=== PATIENT | female | born 1960 | race Caucasian/White ===

== ENCOUNTER 2019-01-16 09:25 | Observation (INO) | payer MEDICARE, OTHER ==
[2019-01-09 10:35] VITALS: BMI 33.5
--- NOTE | 2019-01-11 15:44 | RADRPT ---
Vent Rate: 85 bpm RR Interval: 708 msec OR Interval: 152 msec QRS Duration: 86 msec QT Interval: 381 msec QTC Interval: 453 msec P-R-T [place]: 60 - 23 - 51 degrees Sinus rhythm...normal P axis, V-rate 50- 99 Electronically Signed By: Gaudencio Stearns
[~2019-01-16] VITALS: Ht 144.8 cm; Wt 74.8 kg
[2019-01-16] VITALS (27 sets, daily range): BP systolic 97–159; BP diastolic 48–86; PULSE 72–98; RESP 11–18; Ht 144.8 cm; Wt 74.8 kg
[~2019-01-16 09:25] MED LIST: ACETAMINOPHEN 500 MG TAB PO ONE; CEFAZOLIN 2 GM/50 ML (PMX) 50 ML IVPB ONE; DEXL30CA2 PO; ESCI10TA PO; LIPA1CAP PO; MECL25TA PO; METO-429 PO; NAPR-688; RANI300T3; SOD CHLORIDE 0.9% 1,000 ML IV ONE; ZOLP5TAB
[2019-01-16] MEDS ORDERED: ZOLP10TA5 ORAL (10:21)
[2019-01-16] MEDS ORDERED: MECL-77 ORAL (10:21)
[2019-01-16] MEDS ORDERED: DEXL60CA2 ORAL (10:21)
[2019-01-16] MEDS ORDERED: CYCL10TA7 ORAL (10:21)
[2019-01-16] MEDS ORDERED: ESCI20TA38 ORAL (10:21)
[2019-01-16] MEDS ORDERED: PROPOFOL 40 ML ONE (10:52)
[2019-01-16] MEDS ORDERED: LIDOCAINE 2% (SDV) 5 ML INJ ONE (10:52)
[2019-01-16] MEDS ORDERED: MIDAZOLAM 1 MG/ML 2 ML INJ ONE (10:52)
[2019-01-16] MEDS ORDERED: FAMOTIDINE 20 MG INJ ONE (10:53)
[2019-01-16] MEDS ORDERED: FENTAnyl 50 MCG/ML VIAL ONE (10:53)
[2019-01-16] MEDS ORDERED: CEFAZOLIN 1 GM INJ ONE (10:53)
[2019-01-16] MEDS ORDERED: ONDANSETRON 4 MG INJ ONE (10:53)
--- NOTE | 2019-01-16 11:02 | PREAC ---
Date/Time of Note Date/Time of Note DATE: 01/16/19 TIME: 11:00 Anesthesia Eval and Record Evaluation Time Pre-Procedure Interview DATE: 01/16/19 TIME: 11:00 Age 58 Sex female NPO: 8 hrs Preoperative diagnosis hx R breast CA Planned procedure prophylactic L breast mastectomy Past Medical History Past Medical History: Includes Cardio: HTN GI: Obesity Surgery & Anesthesia Issues Hx of PONV (R mastectomy) Meds Anticoagulation: No Beta Axel within 24 hr: Yes Reported Medications Cyclobenzaprine Hcl* (Cyclobenzaprine Hcl*) 10 Mg Tablet, 1 TAB ORAL DAILY 01/16/19 Dexlansoprazole (Dexilant) 60 Mg Cap., 1 CAP ORAL DAILY 01/16/19 Meclizine Hcl* (Meclizine Hcl*) 25 Mg Tablet, 12.5 MG ORAL Q8 PRN for DIZZINESS 01/16/19 Escitalopram Oxalate* (Escitalopram Oxalate*) 20 Mg Tablet, 1 TAB ORAL DAILY 01/16/19 Zolpidem Tartrate* (Zolpidem Tartrate*) 10 Mg Tablet, 1 TAB ORAL QHS PRN for INSOMNIA 01/16/19 Metoprolol Tartrate* (Lopressor*) 50 Mg Tab, 50 MG PO TID, #60 TAB 01/09/19 Ranitidine Hcl* (Zantac*) 300 Mg Tab 06/18/10 Naproxen* (Naproxen*) 500 Mg Tablet 06/18/10 Discontinued Reported Medications Meclizine Hcl* (Motion Sickness Relief*) 25 Mg Tab.chew, 25 MG PO Q8H, TAB.CHEW 01/09/19 Saizcn-Mqdwupmb-Gzstayq* (Austen DURHAM* 3,000) 3,000 L-9,500-15,000 Unit Capsule., 1 CAP PO WITH MEALS, CAP 01/09/19 Dexlansoprazole (Dexilant) 30 Mg Cap., 30 MG PO DAILY, #30 CAP 01/09/19 Escitalopram Oxalate* (Lexapro*) 10 Mg Tablet, 10 MG PO DAILY, #30 TAB 01/09/19 Zolpidem Tartrate* (Ambien*) 5 Mg Tablet 06/18/10 Lansoprazole* (Prevacid*) 30 Mg Capsule. 06/18/10 Current Medications Sodium Chloride 1,000 ml @ 75 mls/hr [id number] ONCE IV ; Start 01/16/19 at 09:00; Stop 01/16/19 at 22:19 Meds reviewed: Yes Allergies Coded Allergies: diphenhydramine (Verified Allergy, Mild, "MAKES ME MOREAWAKE", 01/09/19) Allergies Reviewed: Yes Labs/Studies Labs Reviewed: Reviewed by anesthesiologist test: N/A Studies: ECG (nsr), CXR (normal) Pre-procedure Exam Last vitals Vital Signs Date Temp Pulse Resp B/P (MAP) Pulse Ox O2 O2 Flow FiO2 Time Delivery Rate 01/16/19 97.5 72 16 109/63 99 Room Air 10:54 (78) Airway: Adequate mouth opening, Adequate thyromental dist Mallampati: Mallampati II Teeth: Normal Lung: Normal Heart: Normal ASA Physical Status ASA physical status: 2 Emergency: None Planned Anesthetic General/MAC: LMA Pre-operative Attestations Prior to commencing anesthesia and surgery, the patient was re-evaluated, there was verification of: *The patient's identity *The results of appropriate recent lab work and preoperative vital signs *The above evaluation not changing prior to induction *Anesthetic plan, risk benefits, alternative and complications discussed with patient/family; questions answered; patient/family understands, accepts and wishes to proceed. LILIANA HAN Jan 16, 2019 11:02
[2019-01-16] MEDS ORDERED: METOCLOPRAMIDE 10 MG INJ ONE (11:11)
[2019-01-16] MEDS ORDERED: FENTAnyl 50 MCG/ML VIAL IV PRN ×2 (11:30)
[2019-01-16] MEDS ORDERED: MEPERIDINE 25 MG INJ IV PRN (11:30)
[2019-01-16] MEDS ORDERED: ONDANSETRON 4 MG INJ IV PRN ×2 (11:30→13:30)
[2019-01-16] MEDS ORDERED: LABETALOL HCL 20MG INJ IV PRN (11:30)
[2019-01-16] MEDS ORDERED: morphine 2 MG INJ IV PRN ×2 (11:30)
[2019-01-16] MEDS ORDERED: OXYCODONE/ACETAMINOPHEN (5/325) TAB PO PRN ×2 (11:30)
[2019-01-16] MEDS ORDERED: HYDROmorphONE 1 MG/5 ML IV SYRINGE IV PRN ×3 (11:30)
[2019-01-16] MEDS ORDERED: ALBUTEROL 0.083% (NEB) 2.5 MG/3 ML AMP HHN PRN (11:30)
[2019-01-16] MEDS ORDERED: EPHEDrine 25 MG/5 ML SYG ONE (11:57)
[2019-01-16] MEDS ORDERED: PHENYLephrine (100 MCG/ML) 10ML SYG ONE (11:57)
--- NOTE | 2019-01-16 12:22 | PAC ---
Date/Time of Note Date/Time of Note DATE: 01/16/19 TIME: 12:21 Post-Anesthesia Notes Post-Anesthesia Note Last documented vital signs Vital Signs Date Temp Pulse Resp B/P (MAP) Pulse Ox O2 O2 Flow FiO2 Time Delivery Rate 01/16/19 97.5 98 72 99 16 16 109/63 99 100 Room 10:54 121 (78) 148/ Air face 8 65 mask 6L Activity: WNL Respiratory function: WNL Cardiovascular function: WNL Mental status: Baseline Pain reasonably controlled: Yes Hydration appropriate: Yes Nausea/Vomiting absent: Yes LILIANA HAN Jan 16, 2019 12:22
--- NOTE | 2019-01-16 13:23 | SIPON ---
Date/Time of Note Date/Time of Note DATE: 01/16/19 TIME: 13:22 Operative Report Preoperative Diagnosis History of right breast cancer need for left prophylactic mastectomy Postoperative Diagnosis Same Operation/Procedure Performed Left prophylactic mastectomy Surgeon see signature line salon shampoo assistant Dr Ferreira Anesthesia: general Estimated blood loss: 10 - 50 ml's Transfusion Required none Specimen Left breast Grafts/Implants none Complications none JOLENE DURAN MD Jan 16, 2019 13:23
[2019-01-16] MEDS ORDERED: ACETAMINOPHEN 1000MG/100ML IV 100 ML IVPB PRN (13:30)
--- NOTE | 2019-01-16 13:56 | OPR ---
DATE OF OPERATION: 01/16/2019 PREOPERATIVE DIAGNOSIS: History of right breast cancer, need for left prophylactic mastectomy. POSTOPERATIVE DIAGNOSIS: History of right breast cancer, need for left prophylactic mastectomy. PROCEDURE: Left prophylactic mastectomy. ANESTHESIA: General. ANESTHESIOLOGIST: . SURGEON: Jose Luis Duran MD. LASTEX THREAD WINDER: Paul Ferreira MD. INDICATIONS FOR PROCEDURE: The patient is a 58-year-old female, who I previously treated for invasiv e cancer of her right breast. She was in an active surveillance program; however, she strongly wishe d to undergo a left prophylactic mastectomy due to the severe anxiety of the possible development of a left breast cancer. I discussed this with both her and her son, who is a medical oncologist and th ey both agreed that they wanted to proceed in this fashion. She consented and was scheduled for surg barber. DESCRIPTION OF PROCEDURE: The patient was brought to the operating theater, placed under general ane sthesia. The left breast and axillary region was prepped and draped in usual sterile fashion. A nuno nned elliptical incision was made widely around the nipple areolar complex including a portion of the overlying skin of the breast. Subcutaneous tissue was dissected with cautery. The skin edges were then elevated with Allis Kusilvak clamps and skin flaps were created using cautery, first superiorly to the clavicle, then medially to the sternal border, inferiorly to the inframammary fold and laterally until the latissimus dorsi muscle was identified throughout its course. Mastectomy then took place f rom medial to lateral using cautery at the border of the pectoralis major muscle, the pectoralis gabby r muscle was identified. Clavipectoral fascia was incised and the axillary tail was then resected us ing cautery. Final connective tissue attachments to the latissimus dorsi muscle were then also trans ected using cautery. The specimen was removed, oriented and sent for permanent pathologic analysis. The wound was irrigated. Minimal bleeding was controlled with cautery. Two #10 Faroese Carlos-Prat t drainage were then brought through the left mid axillary line, one was cut to size and laid within the axilla, the other was cut to size and laid over the pectoralis major muscle. Both drains were se cured in place with 2-0 nylon sutures in the standard fashion. The skin was then reapproximated with a deep dermal layer of 4-0 Vicryl sutures in interrupted fashion, followed by final skin approximate d with skin chris. The patient tolerated the procedure well. The estimated blood loss was 30 mL. There were no complications and the patient was transported in stable condition to recovery room whe re circumferential compression dressing was applied. Dictated By: JOSE LUIS DURAN MD TL/ADILIA Conf#: [id number] DID#: [id number] CC: DANIELA BATISTA MD;*EndCC*
[2019-01-16] MEDS: D5W-0.45 NACL + KCL 20 MEQ 1,000 ML IV SCH ×2 (14:23→22:00)
[2019-01-16] MEDS: morphine 2 MG INJ IV PRN ×2 (15:37→22:03)
--- NOTE | 2019-01-16 15:51 | HP ---
Date/Time of Note Date/Time of Note DATE: 01/16/19 TIME: 15:43 Assessment/Plan VTE Prophylaxis SCD applied (from Nsg): Yes Pharmacological prophylaxis: NA/contraindicated Pharm contraindication: surgical contra Lines/Catheters IV Catheter Type (from Nrsg): Saline Lock Assessment/Plan Assessment/Plan -History of right breast cancer, need for left prophylactic mastectomy. S/p left prophylactic mastectomy. Continue IV fluids and postoperative antibiotic. Continue morphine and Tylenol PRN for pain and Zofran as needed for nausea. -Tachycardia, continue metoprolol -Depression and anxiety -Vertigo Will resume patient metoprolol as well as antianxiety and depression medication. Plan of care discussed with patient and patient's at the bedside, all questions answered. Further recommendations based on clinical course. Plan of care discussed with Dr. Venegas. HPI/ROS Admit Date/Time Admit Date/Time Jan 16, 2019 at 13:22 Hx of Present Illness Patient is 58-year-old female with history of right breast cancer which was diagnosed 8 years ago patient status post right mastectomy follows with Dr. Beck in oncology consultation. Patient with history of depression, anxiety, vertigo. Patient also history of tachycardia and is on metoprolol 3 times daily, follows with Dr. Beckett as an outpatient. Patient strongly wished to undergo left prophylactic mastectomy due to severe anxiety of possible development of a left breast cancer. Patient was evaluated by Dr. Jacob general surgery consultation. Patient was brought to the hospital and underwent left mastectomy today. Postoperatively patient experiencing moderate pain and patient is admitted for further evaluation and management. ROS 12 point review of system is negative except for what mentioned in HPI PMH/Family/Social Past Medical History Medical History: other (Tachycardia, vertigo, depression, anxiety) Medications Current Medications Sodium Chloride 1,000 ml @ 75 mls/hr [id number] ONCE IV ; Start 01/16/19 at 09:00; Stop 01/16/19 at 22:19 Morphine Sulfate (morphine) 2 mg PACU PRN IV PAIN LEVEL 1-3; Start 01/16/19 at 11:30; Stop 01/16/19 at 18:00 Morphine Sulfate (morphine) 4 mg PACU PRN IV PAIN LEVEL 4-6; Start 01/16/19 at 11:30; Stop 01/16/19 at 18:00 Hydromorphone HCl (Dilaudid) 0.2 mg PACU PRN IV MILD PAIN 1-3; Start 01/16/19 at 11:30; Stop 01/16/19 at 18:00 Hydromorphone HCl (Dilaudid) 0.4 mg PACU PRN IV MOD PAIN 4-6 Last administered on 01/16/19 12:59; Admin Dose 0.4 MG; Start 01/16/19 at 11:30; Stop 01/16/19 at 18:00 Hydromorphone HCl (Dilaudid) 0.6 mg PACU PRN IV SEVERE PAIN 7-10 Last administered on 01/16/19 12:46; Admin Dose 0.6 MG; Start 01/16/19 at 11:30; Stop 01/16/19 at 18:00 Fentanyl (Sublimaze) 25 mcg PACU ORDER PRN IV MILD PAIN 1-3; Start 01/16/19 at 11:30; Stop 01/16/19 at 18:00 Fentanyl (Sublimaze) 50 mcg PACU ORDER PRN IV MOD PAIN 4-6 Last administered on 01/16/19at 13:23; Admin Dose 50 MCG; Start 01/16/19 at 11:30; Stop 01/16/19 at 18:00 Oxycodone/ Acetaminophen (Percocet (5/ 325)) 1 tab PACU ORDER PRN PO .PAIN 1-5; Start 01/16/19 at 11:30; Stop 01/16/19 at 18:00 Oxycodone/ Acetaminophen (Percocet (5/ 325)) 2 tab PACU ORDER PRN PO .PAIN 6-10; Start 01/16/19 at 11:30; Stop 01/16/19 at 18:00 Ondansetron HCl (Zofran Inj) 4 mg PACU ORDER PRN IV NAUSEA/VOMITING Last administered on 01/16/19 12:35; Admin Dose 4 MG; Start 01/16/19 at 11:30; Stop 01/16/19 at 18:00 Labetalol HCl (Labetalol) 5 mg PACU ORDER PRN IV HIGH BLOOD PRESSURE; Start 01/16/19 at 11:30; Stop 01/16/19 at 18:00 Albuterol (Proventil 0.083% (Neb)) 2.5 mg PACU ORDER PRN HHN .WHEEZING; Start 01/16/19 at 11:30; Stop 01/16/19 at 18:00 Meperidine HCl (Demerol) 25 mg PACU ORDER PRN IV .RIGORS Last administered on 01/16/19at 12:33; Admin Dose 25 MG; Start 01/16/19 at 11:30; Stop 01/16/19 at 18:00 Ondansetron HCl (Zofran Inj) 4 mg Q6H PRN IV NAUSEA AND/OR VOMITING; Start 01/16/19 at 13:30 Potassium Chloride/Dextrose/ Sod Cl 1,000 ml @ 125 mls/hr Q8H IV Last administered on 01/16/19at 14:23; Admin Dose 125 MLS/HR; Start 01/16/19 at 13:20 Morphine Sulfate (morphine) 2 mg Q1H PRN IV PAIN Last administered on 01/16/19at 15:37; Admin Dose 2 MG; Start 01/16/19 at 13:30 Acetaminophen 100 ml @ 400 mls/hr Q6H PRN IVPB PAIN; Start 01/16/19 at 13:30; Stop 01/17/19 at 13:29 Coded Allergies: diphenhydramine (Verified Allergy, Mild, "MAKES ME MOREAWAKE", 01/09/19) Past Surgical History Past Surgical Hx: other (Status post hysterectomy and bilateral oophorectomy in 2006, status post right mastectomy, status post cholecystectomy) Family History Significant Family History: other (Negative for history of breast cancer) Social History Alcohol Use: none Smoking Status: Never smoker Drug Use: none Exam/Review of Systems Vital Signs Vitals Vital Signs Date Temp Pulse Resp B/P (MAP) Pulse Ox O2 O2 Flow FiO2 Time Delivery Rate 01/16/19 88 16 141/53 99 Nasal 3.0 12:48 (82) Cannula 01/16/19 98.0 12:18 Intake and Output 01/15/19 01/15/19 01/16/19 1515:00 23:00 07:00 IntakeIntake Total 600 ml BalanceBalance 600 ml Exam Constitutional: alert, oriented Head: normocephalic Neck: supple Respiratory: clear to auscultation Cardiovascular: nl pulses Gastrointestinal: soft, non-tender Musculoskeletal: nl extremities to inspection Extremities: normal pulses Neurological: nl mental status Skin: other (Status post left mastectomy, YVAN x2) FROILAN NIELSEN Jan 16, 2019 15:51
[2019-01-16] MEDS ORDERED: MECLIZINE 12.5 MG TAB PO PRN (16:00)
[2019-01-16] MEDS ORDERED: ZOLPIDEM 5 MG TAB PO PRN (16:00)
[2019-01-16] MEDS: METOPROLOL 50 MG TAB PO SCH (20:49)
[2019-01-17 00:29] VITALS: BP 94/52; PULSE 80; RESP 18
[2019-01-17 04:28] VITALS: BP 91/52; PULSE 66; RESP 18
[2019-01-17] MEDS: D5W-0.45 NACL + KCL 20 MEQ 1,000 ML IV SCH ×4 (05:20→23:38)
[2019-01-17] MEDS: PANTOPRAZOLE (EC) 40 MG TAB PO SCH (06:00)
[2019-01-17] MEDS: HYDROCODONE/APAP (5/325) TAB PO PRN ×3 (06:02→19:14)
[2019-01-17 07:20] VITALS: BP 101/58; PULSE 72; RESP 20
[2019-01-17] MEDS: METOPROLOL 50 MG TAB PO SCH ×3 (09:00→21:25)
[2019-01-17] MEDS: RANITIDINE 150 MG TAB PO SCH (09:36)
[2019-01-17] MEDS: ESCITALOPRAM 10 MG TAB PO SCH (09:36)
[2019-01-17] MEDS: CYCLOBENZAPRINE 10 MG TAB PO SCH (09:36)
[2019-01-17 13:20] VITALS: BP 118/60
[2019-01-17 14:21] VITALS: BP 115/55; PULSE 74; RESP 18
[2019-01-17] MEDS: morphine 2 MG INJ IV PRN ×2 (15:19→21:27)
--- NOTE | 2019-01-17 16:24 | PN ---
Date/Time of Note Date/Time of Note DATE: 01/17/19 TIME: 16:24 Assessment/Plan VTE Prophylaxis Risk score (from Ns)>0 risk: 11 SCD applied (from Ns): Yes Pharmacological prophylaxis: NA/contraindicated Pharm contraindication: surgical contra Lines/Catheters IV Catheter Type (from [facility]): Peripheral IV Assessment/Plan Hospital Course Patient complaints of generalized weakness and dizziness, complains of significant pain still requiring IV morphine, and encouraged to use incentive sp irometer and get out of bed use [place]. Assessment/Plan -History of right breast cancer, need for left prophylactic mastectomy. S/p left prophylactic mastectomy. Continue IV fluids and postoperative antibiotic. Continue morphine and Tylenol PRN for pain and Zofran as needed for nausea. -Tachycardia, continue metoprolol -Depression and anxiety -Vertigo Further recommendations based on clinical course. Plan of care discussed with Dr. Venegas. Result Diagram: 01/17/19 0443 01/17/19 0443 Results 24hrs Laboratory Tests Test 01/17/19 04:43 White Blood Count 6.1 # Red Blood Count 3.63 L Hemoglobin 10.7 L Hematocrit 33.8 L Mean Corpuscular Volume 93.1 Mean Corpuscular Hemoglobin 29.5 Mean Corpuscular Hemoglobin Concent 31.7 L Red Cell Distribution Width 13.2 Platelet Count 159 Mean Platelet Volume 9.7 Immature Granulocytes % 0.200 Neutrophils % 62.5 Lymphocytes % 29.3 Monocytes % 6.6 Eosinophils % 1.1 Basophils % 0.3 Nucleated Red Blood Cells % 0.0 Immature Granulocytes # 0.010 Neutrophils # 3.8 Lymphocytes # 1.8 Monocytes # 0.4 Eosinophils # 0.1 Basophils # 0.0 Nucleated Red Blood Cells # 0.0 Sodium Level 140 Potassium Level 4.2 Chloride Level 109 Carbon Dioxide Level 27 Anion Gap 4 L Blood Urea Nitrogen 5 L Creatinine 0.47 Est Glomerular Filtrat Rate mL/min > 60 Glucose Level 107 Calcium Level 7.5 L Subjective 24 Hr Interval Summary Free Text/Dictation Constitutional: alert, oriented Respiratory: clear to auscultation Cardiovascular: nl pulses Gastrointestinal: soft, non-tender Musculoskeletal: nl extremities to inspection Extremities: normal pulses Neurological: nl mental status Skin: other (Status post left mastectomy, YVAN x2) Exam/Review of Systems Exam Vitals Vital Signs Date Temp Pulse Resp B/P (MAP) Pulse Ox O2 O2 Flow FiO2 Time Delivery Rate 01/17/19 97.8 74 18 115/55 96 Room Air 14:21 (75) 01/17/19 2.0 08:00 Intake and Output 01/16/19 01/16/19 01/17/19 1515:00 23:00 07:00 IntakeIntake Total 1000 ml 800 ml OutputOutput Total 60 ml 30 ml 60 ml BalanceBalance -60 ml 970 ml 740 ml Results Results 24hrs Laboratory Tests Test 01/17/19 04:43 White Blood Count 6.1 # Red Blood Count 3.63 L Hemoglobin 10.7 L Hematocrit 33.8 L Mean Corpuscular Volume 93.1 Mean Corpuscular Hemoglobin 29.5 Mean Corpuscular Hemoglobin Concent 31.7 L Red Cell Distribution Width 13.2 Platelet Count 159 Mean Platelet Volume 9.7 Immature Granulocytes % 0.200 Neutrophils % 62.5 Lymphocytes % 29.3 Monocytes % 6.6 Eosinophils % 1.1 Basophils % 0.3 Nucleated Red Blood Cells % 0.0 Immature Granulocytes # 0.010 Neutrophils # 3.8 Lymphocytes # 1.8 Monocytes # 0.4 Eosinophils # 0.1 Basophils # 0.0 Nucleated Red Blood Cells # 0.0 Sodium Level 140 Potassium Level 4.2 Chloride Level 109 Carbon Dioxide Level 27 Anion Gap 4 L Blood Urea Nitrogen 5 L Creatinine 0.47 Est Glomerular Filtrat Rate mL/min > 60 Glucose Level 107 Calcium Level 7.5 L Medications Medication Current Medications Ondansetron HCl (Zofran Inj) 4 mg Q6H PRN IV NAUSEA AND/OR VOMITING; Start 01/16/19 at 13:30 Potassium Chloride/Dextrose/ Sod Cl 1,000 ml @ 125 mls/hr Q8H IV Last administered on 01/17/19at 15:27; Admin Dose 125 MLS/HR; Start 01/16/19 at 13:20 Morphine Sulfate (morphine) 2 mg Q1H PRN IV PAIN Last administered on 01/17/19at 15:19; Admin Dose 2 MG; Start 01/16/19 at 13:30 Meclizine HCl (Antivert) 12.5 mg Q8H PRN PO DIZZINESS; Start 01/16/19 at 16:00 Metoprolol Tartrate (Lopressor) 50 mg TID PO Last administered on 01/16/19at 20:49; Admin Dose 50 MG; Start 01/16/19 at 21:00 Zolpidem Tartrate (Ambien) 10 mg QHS PRN PO INSOMNIA; Start 01/16/19 at 16:00 Pantoprazole (Protonix Tab) 40 mg DAILY@06 PO Last administered on 01/17/19 06:00; Admin Dose 40 MG; Start 01/17/19 at 06:00 Cyclobenzaprine HCl (Flexeril) 10 mg DAILY PO Last administered on 01/17/19 09:36; Admin Dose 10 MG; Start 01/17/19 at 09:00 Escitalopram Oxalate (Lexapro) 20 mg DAILY PO Last administered on 01/17/19 09:36; Admin Dose 20 MG; Start 01/17/19 at 09:00 Ranitidine HCl (Zantac) 300 mg DAILY PO Last administered on 01/17/19 09:36; Admin Dose 300 MG; Start 01/17/19 at 09:00 Acetaminophen/ Hydrocodone Bitart ([place] (5/325)) 1 tab Q4H PRN PO MODERATE PAIN LEVEL 4-6 Last administered on 01/17/19 11:22; Admin Dose 1 TAB; Start 01/17/19 at 07:00 FROILAN NIELSEN Jan 17, 2019 16:24
[2019-01-17 20:27] VITALS: BP 121/61; PULSE 89; RESP 18
--- NOTE | 2019-01-17 22:30 | PN ---
DATE: 01/17/2019 POSTOP DAY #1: Status post left breast prophylactic complete mastectomy (this patient had cancer of right breast which was operated about a year ago or so with radical mastectomy and patient had reques uma now that she wants prophylactic removal of the left breast which was done yesterday). SUBJECTIVE: Complains of pain, required IV pain medication and oral medication and also feels dizzy and has not walked out of bed to go around, has tolerated diet. No bowel movement yet. OBJECTIVE: GENERAL: Awake, alert. VITAL SIGNS: Temperature maximum 98.7, heart rate 80, respiration 18, blood pressure 91/52, saturati on 98% on 2 liter nasal cannula. HEART: Regular. LUNGS: Clear. ABDOMEN: Soft. CHEST WALL: There is bolster dressing around the chest; it is not too tight and the patient feels co mfortable with that. There are 2 Carlos-Delacruz drains which show some serosanguineous, slightly more towards sanguineous drainage in the tubing at the time of operation yesterday. This morning, these 2 Carlos-Delacruz drains have drained totally 120 mL of fluid, which is slightly bloody. EXTREMITIES: The patient can move both upper extremities easily. LABORATORY DATA: WBC 6100 with 62% segmented, hemoglobin 10.7, hematocrit 33.8, platelet count 149. Chemistry: Sodium, potassium normal. BUN and creatinine normal. ASSESSMENT AND PLAN: The patient is relatively stable post left complete mastectomy prophylactic due to cancer of the right breast she had a couple of years ago. Now, the patient is slightly dizzy whe n she gets out of bed and also the pain is not well under control. Therefore, we will keep the patie nt 1 more night in the hospital. Hopefully, by tomorrow, we can send her home. Dictated By: JEANNETTE LEMONS MD PS/NTS Conf#: [id number] DID#: [id number] CC: JOLENE DURAN MD;*EndCC*
[2019-01-18 02:06] VITALS: BP 108/54; PULSE 83; RESP 18
[2019-01-18] MEDS: morphine 2 MG INJ IV PRN ×2 (03:44→07:30)
[2019-01-18] MEDS: D5W-0.45 NACL + KCL 20 MEQ 1,000 ML IV SCH ×2 (05:20→07:29)
[2019-01-18] MEDS: PANTOPRAZOLE (EC) 40 MG TAB PO SCH (05:36)
[2019-01-18] MEDS: HYDROCODONE/APAP (5/325) TAB PO PRN ×2 (05:36→09:31)
[2019-01-18 07:34] VITALS: BP 109/53; PULSE 73; RESP 18
[2019-01-18] MEDS: METOPROLOL 50 MG TAB PO SCH ×2 (09:00→14:06)
[2019-01-18] MEDS: RANITIDINE 150 MG TAB PO SCH (09:27)
[2019-01-18] MEDS: CYCLOBENZAPRINE 10 MG TAB PO SCH (09:28)
[2019-01-18] MEDS: ESCITALOPRAM 10 MG TAB PO SCH (09:28)
--- NOTE | 2019-01-18 11:24 | PN ---
DATE: 01/18/2019 Postop day #1, status post prophylactic left complete mastectomy. SUBJECTIVE: Feels much better. Has been out of bed, tolerating diet, walking around. No dizziness, no nausea, no vomiting. OBJECTIVE: GENERAL: Awake, alert, and oriented. VITAL SIGNS: Temperature maximum today 98.8, heart rate 73, respirations of 18, blood pressure 109/5 3, saturation 94% room air. INPUT AND OUTPUT: Two Carlos-Delacruz drains the past 24 hours; one was 10 mL, the other was 40 mL. T he fluid is serosanguineous. CLINICAL EXAMINATION: HEART: Regular. LUNGS: Clear. ABDOMEN: Soft. CHEST WALL: Two layers of dressing intact. The bias dressing is not too tight. ASSESSMENT AND PLAN: A 58-year-old female status post left breast complete mastectomy as a prophylac tic because the patient has had cancer of right breast in the past a few years ago. Clinically, the patient is stable right now and therefore can be discharged today to be followed by Dr. Duran in his office. The patient's was instructed the care of 2 Carlos-Delacruz drains. He understood and he is going to do that. They have called and have made an appointment with Dr. Duran to see him in t he office in the next couple of weeks. All questions answered. Dictated By: JEANNETTE LEMONS MD PS/NTS Conf#: [id number] DID#: [id number] CC: JOLENE DURAN MD;*EndCC*
[2019-01-18 15:02] VITALS: BP 113/61; PULSE 73; RESP 18
[2019-01-18] MEDS ORDERED: HYDR-3601 PO (15:49)
--- NOTE | 2019-01-23 09:26 | DS ---
Date/Time of Note Date/Time of Note DATE: 01/23/19 TIME: 09:25 Discharge Summary Admission/Discharge Info Admit Date/Time Jan 16, 2019 at 13:22 Discharge Date/Time Jan 18, 2019 at 17:19 Patient Condition: Stable Hx of Present Illness Patient is 58-year-old female with history of right breast cancer which was diagnosed 8 years ago patient status post right mastectomy follows with Dr. Beck in oncology consultation. Patient with history of depression, anxiety, vertigo. Patient also history of tachycardia and is on metoprolol 3 times daily, follows with Dr. Beckett as an outpatient. Patient strongly wished to undergo left prophylactic mastectomy due to severe anxiety of possible development of a left breast cancer. Patient was evaluated by Dr. Jacob general surgery consultation. Patient was brought to the hospital and underwent left mastectomy today. Postoperatively patient experiencing moderate pain and patient is admitted for further evaluation and management. Hospital Course -History of right breast cancer, need for left prophylactic mastectomy. S/p left prophylactic mastectomy. Continue IV fluids and postoperative antibiotic. Continue morphine and Tylenol PRN for pain and Zofran as needed for nausea. -Tachycardia, continue metoprolol -Depression and anxiety -Vertigo Plan of care discussed with Dr. Venegas. Home Meds Active Scripts Hydrocodone Bit-Acetaminophen (Hydrocodone Bit-APAP) 5-325MG Tablet, 1 TAB PO Q4H PRN for MODERATE PAIN LEVEL 4-6, #20 TAB Prov:FROILAN NIELSEN 01/18/19 Reported Medications Cyclobenzaprine Hcl* (Cyclobenzaprine Hcl*) 10 Mg Tablet, 1 TAB ORAL DAILY 01/16/19 Dexlansoprazole (Dexilant) 60 Mg Cap., 1 CAP ORAL DAILY 01/16/19 Meclizine Hcl* (Meclizine Hcl*) 25 Mg Tablet, 12.5 MG ORAL Q8 PRN for DIZZINESS 01/16/19 Escitalopram Oxalate* (Escitalopram Oxalate*) 20 Mg Tablet, 1 TAB ORAL DAILY 01/16/19 Zolpidem Tartrate* (Zolpidem Tartrate*) 10 Mg Tablet, 1 TAB ORAL QHS PRN for INSOMNIA 01/16/19 Metoprolol Tartrate* (Lopressor*) 50 Mg Tab, 50 MG PO TID, #60 TAB 01/09/19 Ranitidine Hcl* (Zantac*) 300 Mg Tab 06/18/10 Naproxen* (Naproxen*) 500 Mg Tablet 06/18/10 Discontinued Reported Medications Meclizine Hcl* (Motion Sickness Relief*) 25 Mg Tab.chew, 25 MG PO Q8H, TAB.CHEW 01/09/19 Jzdrpv-Bkxqvzqe-Urxjzsd* (Austen DURHAM* 3,000) 3,000 L-9,500-15,000 Unit Capsule.dr, 1 CAP PO WITH MEALS, CAP 01/09/19 Dexlansoprazole (Dexilant) 30 Mg Cap.mp, 30 MG PO DAILY, #30 CAP 01/09/19 Escitalopram Oxalate* (Lexapro*) 10 Mg Tablet, 10 MG PO DAILY, #30 TAB 01/09/19 Zolpidem Tartrate* (Ambien*) 5 Mg Tablet 06/18/10 Follow-up Plan Follow-up with Dr. Jacob in 2 weeks Primary Care Provider Not On Staff Doctor Time spent on discharge: > 30 minutes FROILAN NIELSEN Jan 23, 2019 09:26
== END 2019-01-18 17:19 | disposition home or self-care (01) ==
LOC: SDS 09:25 → INTOOBSV 13:22 → REC 13:22 → SDS 13:22 → MS1 13:45
PROVIDERS: ADMIT Surgery Surgical Oncology; ATTEND Surgery Surgical Oncology
DX: Z40.01 Encounter for prophylactic removal of breast (principal); N60.12 Diffuse cystic mastopathy of left breast; N60.92 Unspecified benign mammary dysplasia of left breast; N60.32 Fibrosclerosis of left breast; N61.0 Mastitis without abscess; D18.01 Hemangioma of skin and subcutaneous tissue; Z85.3 Personal history of malignant neoplasm of breast; R00.0 Tachycardia, unspecified; F32.9 Major depressive disorder, single episode, unspecified; F41.9 Anxiety disorder, unspecified; R42 Dizziness and giddiness
CPT/HCPCS: 19303; 71045; 80048; 80053; 85025; 85610; 85730; 88307; 93005; G0378; J0131; J0690; J1170; J2175; J2250; J2270; J2370; J2405; J2765; J3010; J3480